=== PATIENT | female | born 1945 | race Caucasian/White ===

== ENCOUNTER 2022-11-09 15:08 | Emergency (ER) | payer OTHER, SELFPAY ==
--- NOTE | 2022-11-09 15:00 | RT.EKG_ITS ---
APPROVED REPORT Exam: Resting ECG Reason for Exam: [facility] Patient Location: E HR:64 bpm ECG Measurements Heart Rate 64 AXIS NM 173 P 60 QRSd 116 QRS -5 QT 470 T 76 QTc 485 Conclusion Sinus rhythm...normal P axis, V-rate 60- 99 Nonspecific intraventricular conduction delay...QRSd >115mS, not LBBB/RBBB Anterior infarct, old...Q >40mS, abnormal ST-T, V2-V5 I have reviewed and interpreted ECG and agree with software generated interpretation.
[2022-11-09 15:13] VITALS: BP 127/61; PULSE 65; RESP 18; TEMP 36.8; O2SAT 96
--- NOTE | 2022-11-09 15:15 | DI.RAD_ITS ---
Exam(s) XR CHEST 2V PA LATERAL EXAM: XR CHEST 2V PA LATERAL CLINICAL HISTORY: AMS. TECHNIQUE: 2D digital imaging was performed. COMPARISON: No exams were available for comparison FINDINGS: 2 views: Heart size is normal. The mediastinum is not widened. Elevated right hemidiaphragm. No infiltrates nor pleural effusions. No pneumothorax. No pulmonary edema. IMPRESSION: No acute pulmonary findings. DATA REPOSITORY: RADIATION DOSE DELIVERED:
--- NOTE | 2022-11-09 15:15 | ED.GENADUL_ITS ---
Discharge Plan Disposition Patient Disposition: Home Condition: Good Discharge Details Clinical Impression: Mental status change resolved Primary Care Provider: None,None ED Provider: Rocael Almendarez [place] Meds and New Rx's Prescriptions: Continued fluoxetine 40 mg Capsule 80 mg PO DAILY tolterodine 4 mg Capsule,Extended Release 24hr 4 mg PO DAILY diphenhydramine HCl 25 mg Capsule 25 mg PO TID PRN losartan 25 mg Tablet 25 mg PO DAILY rosuvastatin 10 mg Tablet 10 mg PO DAILY Eliquis 2.5 mg Tablet 2.5 mg PO BID Discharge Instructions Additional Instructions: You were seen in the emergency department for confusion. Your symptoms seem to improve after IV fluids. Your head CT does not show any bleed. The mass that has been present is noted to be slightly larger compared to results of MRI last year. There is no evidence of infection in your urine. There is no acute changes found on your chest x-ray. Your laboratory studies are unremarkable and reassuring. You will be discharged home and should follow-up with your primary care next week. Return to ED for any focal neurologic changes, worsening confusion, fever, chest pain, shortness of breath, vomiting, other concerns. Medical Decision Making Patient presents to the ED by ambulance with episode of confusion. Still somewhat confused male and slow mentation but normal level of consciousness. She is oriented x2 and has some difficulty with the gait. He is unable to recall any of her medications. She reports that she does normally function independently. I was able to speak with her daughter who reports recent PE. She is on a blood thinner. She has a known brain mass. Patient denying headache. She is nonfocal neurologically. Complains of generalized weakness and confusion. Doubt bleed or stroke but given blood thinner and meningioma will obtain noncontrast CT. Otherwise infectious/metabolic work-up for acute confusion. Patient's laboratory studies mostly unremarkable. She has a normal white count and hemoglobin. She has normal electrolytes, slightly elevated creatinine. Liver function is normal. Urinalysis negative for infection. Alcohol and urine drug screen negative. Chest x-ray per my read is without acute process. CT head without bleed. 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 This is a little larger than MRI done 1 year ago. [facility] CT head, meds and past medical history. At this point we are waiting for her daughter to arrive to determine her baseline as well as her potential for discharge versus admission. Daughter has arrived. Patient has had something to eat. Her mental status seems improved to me after the IV fluids. Daughter feels that she is at baseline. Patient wants to go home. We will plan discharge home now that daughter is here and confirms a baseline mental status. Medical Records Medical records reviewed: Yes I reviewed the patient's medical records. Medical records narrative: obtained from [place] Lab Data Lab results reviewed: Yes I reviewed the patient's lab results. ECG Data Attestation: I personally reviewed and interpreted this ECG (s) as follows: Prior ECG tracings: not available for review Interpretation: see EKG HPI General Mode of arrival: EMS . Date/Time Provider Initiated Documentation: 11/09/22 15:08 . Limitations to Documentation: altered mental status . Information obtained by: patient, family and EMS . HPI Narrative: Patient presents to ED by ambulance after stopping at the [email or web address] with confusion. Patient is from [place]. She left the bank there and ended up in [place]. She pulled off to the [facility] [place] and EMS was activated. Patient reports no food or drink today but in general he is eating and drinking normally. She has had no fever, cough, shortness of breath, chest pain, headache, nausea, vomiting, diarrhea. Se has no history of diabetes. She is normally independent and takes care of herself doing her own shopping, driving, banking. Related Data Home Medications Medication Instructions Recorded Confirmed apixaban 2.5 mg tablet (Eliquis) 2.5 mg PO BID 11/09/22 11/09/22 diphenhydramine HCl 25 mg capsule 25 mg PO TID PRN 11/09/22 11/09/22 fluoxetine 40 mg capsule 80 mg PO DAILY 11/09/22 11/09/22 losartan 25 mg tablet 25 mg PO DAILY 11/09/22 11/09/22 rosuvastatin 10 mg tablet 10 mg PO DAILY 11/09/22 11/09/22 tolterodine 4 mg capsule,extended 4 mg PO DAILY 11/09/22 11/09/22 release 24 hr Allergies Allergy/AdvReac Type Severity Reaction Status Date / Time No Known Allergies Allergy Unverified 11/09/22 15:13 General Stated Complaint: AMS/LOC JAMES: 2 Review of Systems Unobtainable due to mental status PFSH All Active Problems (Updated 11/09/22 @ 19:46 by Rocael Almendarez MD) Mental status change resolved (Acute) Medical History Brain mass Dementia HTN (hypertension) Hypercholesterolemia Pulmonary embolism Social History Smoking/Tobacco Use Status: Never Smoking risk assessment performed?: Yes Alcohol Intake: never Substance use type: does not use Exam Narrative Exam Narrative: Const: WDWN elderly female in NAD. HEENT: NC/AT. Normal facial exam. Eyes: Normal conjunctiva and sclera. Neck: Supple. Trachea midline. Lungs: Normal respiratory effort. Lungs are clear. Cor: RRR without murmur/gallop. Good radial pulses. GI: Soft. NT/ND. No guarding or rebound. Neuro: A+O x 2. Normal speech, slow mentation. Cranial nerves II - XII grossly intact. No gross motor or sensory deficit. Ext: No C/C/E. Skin: Warm and dry without rash. Course Vital Signs Vital signs: Vital Signs Temperature 98.2 F 11/09/22 15:13 Pulse 65 11/09/22 15:13 Respiratory Rate 18 11/09/22 15:13 Blood Pressure 127/61 11/09/22 15:13 Pulse Oximetry 96 11/09/22 15:13 Temperature 98.2 F 11/09/22 15:13 Temperature Source Temporal Artery Scan 11/09/22 15:13 Pulse 65 11/09/22 15:13 Respiratory Rate 18 11/09/22 15:13 Respiratory Effort Normal, Non-Labored 11/09/22 15:11 Blood Pressure 127/61 11/09/22 15:13 Pulse Oximetry 96 11/09/22 15:13 Oxygen Delivery Method Room Air 11/09/22 15:13 Oxygen Flow Rate 0 11/09/22 15:13
--- NOTE | 2022-11-09 15:15 | DI.CT_ITS ---
Exam(s) CT HEAD WO EXAM: CT HEAD WO CLINICAL HISTORY: AMS. TECHNIQUE: Imaging Protocol: Axial computed tomography images with coronal and sagittal reformatted images were created and reviewed COMPARISON: No exams were available for comparison FINDINGS: There are no skull fractures. Mucosal thickening noted in the maxillary sinuses, right more than left . Sphenoid sinuses and frontal sinuses are clear. Mastoid air cells clear. There is a large mass in the sella turcica extending up to the superior aspect of the suprasellar cis tern beyond the optic chiasm level. This mass measures approximately 2.5 cm craniocaudal by 2.4 cm w priti by 1.9 cm AP. 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 No evidence of intracranial hemorrhage, intra or extra-axial. No cerebellar tonsillar ectopia. No obvious acute infarct. IMPRESSION: Large mass in the pituitary fossa extending up through the suprasellar cistern. 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 Called by myself to ER physician RADIATION DOSE DELIVERED: 745.87mGy.cm Total DLP DATA REPOSITORY: All CT scans at this facility are submitted to the National Radiology Data Registry (NRDR) Dose Index Registry (DIR) with the [employer] ([employer]). RADIATION OPTIMIZATION: All CT scans at this facility use at least one of these dose optimization te chniques: automated exposure control; mA and/or kV adjustment per patient size (includes targeted exa ms where dose is matched to clinical indication); or iterative reconstruction.
--- NOTE | 2022-11-09 15:24 | NUR.NOTE ---
bgm 102
[2022-11-09 15:25] VITALS: RESP 18
[2022-11-09] MEDS: Normal Saline 1,000 ML 1000 ML IV (15:30)
[2022-11-09 15:32] LABS: Abs Immature Grans 0.03 10^3/uL (0.0-0.06); Absolute Basophil Count 0.03 10^3/uL (0.0-0.2); Absolute Eosinophil Count 0.12 10^3/uL (0.0-0.7); Absolute Lymphocyte Count 1.43 10^3/uL (1.2-3.4); Absolute Monocyte Count 0.57 10^3/uL (0.1-0.8); Absolute Neutrophil Count 4.73 10^3/uL (1.2-6.7); Basophils % 0.4; Eosinophils % 1.7; HCT 42.2 % (36.0-46.0); HGB 14.1 g/dL (11.2-15.7); Immature Grans % 0.4; Lymphocytes % 20.7; MCH 30.5 pg (27.0-33.0); MCHC 33.4 % (32.0-36.0); MCV 91 fL (80-95); MPV 8.6 fL (8.0-11.0); Monocytes % 8.2; Neutrophils % 68.6; Platelet Count 317 10^3/uL (130-400); RBC 4.63 10^6/uL (3.93-5.22); RDW 15.3 % (11.7-14.6); RDW-SD 51.1 fL; WBC 6.91 10^3/uL (4.4-10.8)
[2022-11-09 15:49] LABS: ALT 13 U/L (14-59); AST 14 U/L (15-37); Albumin 3.1 g/dL (3.4-5.0); Alkaline Phosphatase 103 U/L (46-116); Anion Gap 6.2 mmol/L (3-11); BUN 15 mg/dL (7-18); Bilirubin, Total 0.5 mg/dL (0.2-1.0); CO2 25.8 mmol/L (21.0-32.0); CREATININE 1.2 mg/dL (0.55-1.02); Calcium 9.2 mg/dL (8.5-10.1); Chloride 106 mmol/L (98-107); Estimated GFR 46.91 (mL/min/1.73m2); Glucose 114 mg/dL (74-106); Magnesium 2.4 mg/dL (1.8-2.4); Potassium 3.9 mmol/L (3.5-5.1); Sodium 138 mmol/L (136-145); Total Protein 7.6 g/dL (6.4-8.2)
[2022-11-09 15:52] LABS: ETHANOL BLOOD < 3.0 mg/dL (<10)
--- NOTE | 2022-11-09 16:04 | NUR.NOTE ---
Gale Ma: [phone]
[2022-11-09 17:19] LABS: Bilirubin Negative (Negative); Blood Negative (Negative); Clarity Clear (Clear); Glucose Negative (Negative); Ketones Negative (Negative); Leukocyte Esterase Negative (Negative); Nitrite Negative (Negative); Specific Gravity >= 1.030 (1.005-1.025); Urobilinogen 0.2 mg/dL (Up to 0.2); pH 5.5 (5-8)
[2022-11-09 17:30] LABS: *AMPHETAMINES SCREEN URINE Negative (Negative); *BARBITURATES SCREEN URINE Negative (Negative); *BENZODIAZEPINES SCREEN URINE Negative (Negative); Cannabinoids THC Negative (Negative); Cocaine Screen,Urine Negative (Negative); METHADONE URINE SCREEN Negative (Negative); OPIATES URINE SCREEN Negative (Negative)
[2022-11-09] MEDS: Normal Saline 1,000 ML 200 ML IV (17:30)
[2022-11-09 17:31] LABS: Tricyclic Antidepressants Negative (Negative)
--- NOTE | 2022-11-09 17:42 | NUR.NOTE ---
Addendum entered by Mitesh Renteria RN 11/09/22 18:51: Tiburcio Steinberg [phone] Original Note: pt gave this RN permission to speak with future son in law Tiburcio Steinberg about current condition.
--- NOTE | 2022-11-09 18:44 | NUR.NOTE ---
this RN has spoken with future son in law multiple times about plan and pt status
--- NOTE | 2022-11-09 18:55 | NUR.NOTE ---
pt provided with sandwich and water. MD Almendarez aware and ok with pt taking PO
== END 2022-11-09 20:08 | disposition home or self-care (01) ==
LOC: ER 19:55
PROVIDERS: Emergency Provider Emergency Medicine
DX: R41.82 Altered mental status, unspecified (principal); R79.89 Other specified abnormal findings of blood chemistry; G93.89 Other specified disorders of brain; I10 Essential (primary) hypertension; F03.90 Unspecified dementia, unspecified severity, without behavioral disturbance, psychotic disturbance, mood disturbance, and anxiety; Z86.711 Personal history of pulmonary embolism; Z79.01 Long term (current) use of anticoagulants
CPT/HCPCS: 36415; 36416; 80053; 80307; 82962; 93005; 96360; 96361; 99284; 70450; 71046; 80320; 81003; 83735; 85025; 93010